=== PATIENT | male | born 1975 | race Two or more races ===

== ENCOUNTER 2022-05-17 06:40 | Day surgery (SDC) | payer OTHER ==
[~2022-05-17 06:40] MED LIST: ADDERALL 20 MG20 MG PO; WELLBUTRIN SR150 MG PO
[2022-05-17] MEDS ORDERED: PERCOCET 5-3251 EACH PO (13:56)
[2022-05-17] MEDS ORDERED: CIPRO500 MG PO (14:01)
== END 2022-05-17 22:55 | disposition home or self-care (01) ==
LOC: CIR.AMB 06:40
PROVIDERS: ATTEND Surgery
DX: N52.01 Erectile dysfunction due to arterial insufficiency (principal); Z20.822 Contact with and (suspected) exposure to COVID-19; Z88.8 Allergy status to other drugs, medicaments and biological substances
CPT/HCPCS: 54405; C1813